=== PATIENT | female | born 1950 | race Hispanic/Latino ===

== ENCOUNTER 2017-03-12 11:03 | Outpatient (CLI) | payer OTHER ==
--- NOTE | 2017-03-12 16:44 | Mammography Report ---
BILATERAL DIGITAL SCREENING MAMMOGRAM with CAD: 03/12/17 11:03:00 CLINICAL: Routine screening. COMPARISON:10/21/14 FINDINGS: There are scattered areas of fibroglandular density. No mass, architectural distortion or suspicious calcifications. IMPRESSION: No mammographic evidence of malignancy. BI-RADS CATEGORY: 2 -- Benign RECOMMENDATION: Routine mammographic screening in one year. COMMENT: Patient follow-up letters are generated by our [employer] application.
== END 2017-03-12 11:04 | disposition home or self-care (01) ==
LOC: SPVWC 11:03
PROVIDERS: ATTEND Obstetrics & Gynecology
DX: Z12.31 Encounter for screening mammogram for malignant neoplasm of breast (principal)
CPT/HCPCS: 77067; G0202

== ENCOUNTER 2018-08-13 10:10 | Outpatient (CLI) | payer MEDICARE ==
--- NOTE | 2018-08-13 15:48 | Mammography Report ---
BILATERAL DIGITAL SCREENING MAMMOGRAM with CAD: 08/13/18 10:10:00 CLINICAL: Routine screening. COMPARISON: 03/12/17 FINDINGS: There are bilateral scattered areas of fibroglandular density.No mass, architectural distortion or suspicious calcifications. IMPRESSION: No mammographic evidence of malignancy. BI-RADS CATEGORY: 2 - - Benign RECOMMENDATION: Routine mammographic screening in one year. COMMENT: Patient follow-up letters are generated by our [employer] application.
== END 2018-08-13 10:11 | disposition home or self-care (01) ==
LOC: SPVWC 10:10
PROVIDERS: ATTEND Obstetrics & Gynecology
DX: Z12.31 Encounter for screening mammogram for malignant neoplasm of breast (principal)
CPT/HCPCS: 77067